=== PATIENT | female | born 1995 | race Caucasian/White ===

== ENCOUNTER 2018-02-06 12:11 | Emergency (ER) | payer BC, OTHER ==
[2018-02-06 12:28] VITALS: BP 137/93
[2018-02-06] MEDS ORDERED: Sodium Chloride 0.9% 1,000 ML IV ONE (13:01)
[2018-02-06] MEDS ORDERED: Sodium Chloride 0.9% 10 ML Syringe FLUSH PRN (13:02)
[2018-02-06] MEDS ORDERED: LORazepam 2 MG/ML SDV IVPUSH ONE (13:03)
--- NOTE | 2018-02-06 13:09 | EDM.PDOC ---
ED HPI GENERAL MEDICAL PROBLEM - General Chief Complaint: Allergic Reaction Stated Complaint: SOB Time Seen by Provider: 02/06/18 12:45 Source of Information: Reports: Patient History Limitations: Reports: No Limitations - History of Present Illness INITIAL COMMENTS - FREE TEXT/NARRATIVE: 22-year-old female presents for evaluation and treatment of shortness of breath. Patient reports that she started on Zoloft yesterday. She started on 50 mg daily. She took a dose yesterday and then again around 6:30 this morning. She states that she felt like she had 2 panic attacks earlier. She states that she went to [facility] and began to feel short of breath. States that she feels that she cannot take a deep breath in. In addition she feels lightheaded and fatigued. She denies any syncope, nausea, vomiting or chest pain. Additionally, she reports numbness and tingling to the left side of her face, left upper extremity, bilateral legs and across her abdomen. She reports concerning Zoloft she has not had much been obtained and have not had much to eat today. She questions if she is dehydrated. Reports that her urine was darker than normal but denies any dysuria. She questions if she is , however, she take 2 at home urine test both were negative. she is currently on the depo shot. She did appreciate some spotting yesterday and today. Patient reports that she started on Zoloft 50 mg daily yesterday for depression. She's never been on anything for depression previously. Additionally, patient reports that she is has had headaches for the last 2 weeks. She normally takes Tylenol or Motrin, [id number] for these. Reports the headache is currently in the frontal area and radiates behind her ears. Reports associated symptoms of photophobia. 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: Psychiatric History: Reports: Depression - Infectious Disease History Infectious Disease History: Reports: Chicken Pox Social & Family History - Tobacco Use Smoking Status *Q: Never Smoker Years of Tobacco use: 1 Used Tobacco, but Quit: No Second Hand Smoke Exposure: Yes - Alcohol Use Days Per Week of Alcohol Use: 2 Number of Drinks Per Day: 2 Total Drinks Per Week: 4 - Recreational Drug Use Recreational Drug Use: No Recreational Drug Type: Reports: Marijuana/Hashish Recreational Drug Use Frequency: Not Used In Over 1 Month ED ROS ALLERGIC REACTION - Review of Systems Review Of Systems: See Below Constitutional: Reports: Decreased Appetite Respiratory: Reports: Shortness of Breath Cardiovascular: Denies: Chest Pain, Syncope GI/Abdominal: Denies: Nausea, Vomiting : Denies: Dysuria Neurological: Reports: Dizziness, Headache, Numbness, Tingling. Denies: Syncope ED EXAM GENERAL NO PERIP PULSE - Physical Exam Exam: See Below Exam Limited By: No Limitations General Appearance: Alert, WD/WN, No Apparent Distress Ears: Normal External Exam Nose: Normal Inspection Throat/Mouth: Normal Inspection, Normal Lips, Normal Voice, No Airway Compromise Respiratory/Chest: No Respiratory Distress, Lungs Clear, Normal Breath Sounds, Chest Non-Tender Cardiovascular: Normal Peripheral Pulses, Regular Rate, Rhythm, No Murmur Extremities: Normal Inspection Neurological: Alert, Oriented, Normal Cognition Psychiatric: Normal Affect, Normal Mood Skin Exam: Warm, Dry, Normal Color Course - Vital Signs Last Recorded V/S: Last Vital Signs Temp 36.6 C 02/06/18 12:24 Pulse 110 H 02/06/18 12:24 Resp 17 02/06/18 12:24 BP 137/93 H 02/06/18 12:24 Pulse Ox 100 02/06/18 12:24 - Orders/Labs/Meds Labs: Laboratory Tests 02/06/18 02/06/18 02/06/18 Range/Units 13:10 13:10 13:10 WBC 5.93 (3.98-10.04) K/mm3 RBC 4.90 (3.98-5.22) M/mm3 Hgb 14.2 (11.2-15.7) gm/L Hct 40.7 (34.1-44.9) % MCV 83.1 (79.4-94.8) fl MCH 29.0 (25.6-32.2) pg MCHC 34.9 (32.2-35.5) g/dl RDW Std Deviation 38.6 (36.4-46.3) fL Plt Count 256 (182-369) K/mm3 MPV 9.9 (9.4-12.3) fl Neutrophils % (Manual) 64 H (40-60) % Band Neutrophils % 0 (0-10) % Lymphocytes % (Manual) 32 (20-40) % Atypical Lymphs % 0 % Monocytes % (Manual) 4 (2-10) % Eosinophils % (Manual) 0 L (0.7-5.8) % Basophils % (Manual) 0 L (0.1-1.2) Platelet Estimate Adequate Plt Morphology Comment Normal RBC Morph Comment Normal D-Dimer, Quantitative (0.19-0.59) mg/L Sodium 140 (136-145) mEq/L Potassium 3.1 L (3.5-5.1) mEq/L Chloride 104 (98-107) mEq/L Carbon Dioxide 24 (21-32) mEq/L Anion Gap 15.1 H (5-15) BUN 11 (7-18) mg/dL Creatinine 1.1 H (0.55-1.02) mg/dL Est Cr Clr Drug Dosing 86.01 mL/min Estimated GFR (MDRD) > 60 (>60) mL/min BUN/Creatinine Ratio 10.0 L (14-18) Glucose 84 (74-106) mg/dL Calcium 9.6 (8.5-10.1) mg/dL Magnesium (1.8-2.4) mg/dl Total Bilirubin 0.5 (0.2-1.0) mg/dL AST 19 (15-37) U/L ALT 33 (14-59) U/L Alkaline Phosphatase 70 (46-116) U/L Total Protein 8.0 (6.4-8.2) g/dl Albumin 4.2 (3.4-5.0) g/dl Globulin 3.8 gm/dL Albumin/Globulin Ratio 1.1 (1-2) TSH 3rd Generation 1.602 (0.358-3.74) uIU/mL HCG, Qual Negative (NEGATIVE) 02/06/18 02/06/18 Range/Units 13:10 13:10 WBC (3.98-10.04) K/mm3 RBC (3.98-5.22) M/mm3 Hgb (11.2-15.7) gm/L Hct (34.1-44.9) % MCV (79.4-94.8) fl MCH (25.6-32.2) pg MCHC (32.2-35.5) g/dl RDW Std Deviation (36.4-46.3) fL Plt Count (182-369) K/mm3 MPV (9.4-12.3) fl Neutrophils % (Manual) (40-60) % Band Neutrophils % (0-10) % Lymphocytes % (Manual) (20-40) % Atypical Lymphs % % Monocytes % (Manual) (2-10) % Eosinophils % (Manual) (0.7-5.8) % Basophils % (Manual) (0.1-1.2) Platelet Estimate Plt Morphology Comment RBC Morph Comment D-Dimer, Quantitative < 0.19 L (0.19-0.59) mg/L Sodium (136-145) mEq/L Potassium (3.5-5.1) mEq/L Chloride (98-107) mEq/L Carbon Dioxide (21-32) mEq/L Anion Gap (5-15) BUN (7-18) mg/dL Creatinine (0.55-1.02) mg/dL Est Cr Clr Drug Dosing mL/min Estimated GFR (MDRD) (>60) mL/min BUN/Creatinine Ratio (14-18) Glucose (74-106) mg/dL Calcium (8.5-10.1) mg/dL Magnesium 2.1 (1.8-2.4) mg/dl Total Bilirubin (0.2-1.0) mg/dL AST (15-37) U/L ALT (14-59) U/L Alkaline Phosphatase (46-116) U/L Total Protein (6.4-8.2) g/dl Albumin (3.4-5.0) g/dl Globulin gm/dL Albumin/Globulin Ratio (1-2) TSH 3rd Generation (0.358-3.74) uIU/mL HCG, Qual (NEGATIVE) Meds: Medications Discontinued Medications Generic Name Dose Route Start Last Admin Trade Name Freq PRN Reason Stop Dose Admin Diphenhydramine HCl 50 mg 02/06/18 13:57 02/06/18 14:00 Benadryl IVPUSH 02/06/18 13:58 50 mg ONETIME ONE Administration Sodium Chloride 1,000 mls @ 999 mls/hr 02/06/18 13:01 02/06/18 13:24 Normal Saline IV 02/06/18 14:01 999 mls/hr ONETIME ONE Administration Ketorolac Tromethamine 30 mg 02/06/18 14:25 02/06/18 14:45 Toradol IVPUSH 02/06/18 14:26 30 mg ONETIME ONE Administration Lorazepam 1 mg 02/06/18 13:03 02/06/18 13:25 Ativan IVPUSH 02/06/18 13:04 1 mg ONETIME ONE Administration Potassium Chloride 20 meq 02/06/18 15:52 02/06/18 15:55 Klor-Con M20 PO 02/06/18 15:53 20 meq ONETIME ONE Administration Sodium Chloride 10 ml 02/06/18 13:02 02/06/18 13:28 Saline Flush FLUSH 10 ml ASDIRECTED PRN Administration Keep Vein Open - Re-Assessments/Exams Free Text/Narrative Re-Assessment/Exam: 02/06/18 15:24 I reviewed the labs with the patient. If she does feel improved after some fluids, Ativan and Benadryl. benadryl was ordered as she reported feeling swelling in her neck. At this time she looks much more relaxed and calm. Working diagnosis is anxiety and panic attacks versus atypical migraines versus reaction to the Zoloft. Zoloft is known to cause some of the symptoms she was experiencing. She also likely has some underlying anxiety. I will encouraged her to stop the Zoloft, as she is on the smallest dose and will try her on some Ativan. She is instructed to follow-up with Dr. Phillips. She agrees this treatment plan. She is instructed to return to the ER for symptoms change or worsen. Departure - Departure Time of Disposition: 15:28 Disposition: Home, Self-Care 01 Condition: Fair Clinical Impression: Anxiety, Adverse reaction to drug - Discharge Information Prescriptions: LORazepam [Ativan] 0.5 mg PO Q8H PRN #10 tab PRN Reason: Anxiety Instructions: Panic Attacks, [id number], Drug Allergy, [id number] Referrals: Maria Alejandra Perez MD [Primary Care Provider] - Forms: ED Department Discharge Additional Instructions: Stop the Zoloft. Take the Ativan 1 tab up to 3 times a day as needed for anxiety and panic-like symptoms. make Sure you're drinking plenty of fluids. Rest. Follow-up with Dr. Phillips for a recheck of your symptoms next week. Please return to the ER if your symptoms change or worsen.
[2018-02-06] MEDS ORDERED: diphenhydrAMINE 50 MG/ML SDV IVPUSH ONE (13:57)
[2018-02-06] MEDS ORDERED: Ketorolac 30 MG/ML SDV IVPUSH ONE (14:25)
[2018-02-06] MEDS ORDERED: Potassium Chloride 20 MEQ Tab.ER PO ONE (15:52)
== END 2018-02-06 15:40 | disposition home or self-care (01) ==
LOC: JD.ED 12:11
DX: F41.9 Anxiety disorder, unspecified (principal); T43.225A Adverse effect of selective serotonin reuptake inhibitors, initial encounter; F32.9 Major depressive disorder, single episode, unspecified; Z88.2 Allergy status to sulfonamides; Z79.899 Other long term (current) drug therapy
CPT/HCPCS: 36415; 80053; 83735; 84443; 84703; 85025; 85379; 96361; 96374; 96375; 99285; A9270; J1200; J1885; J2060; J7040; J7050

== ENCOUNTER 2018-05-01 14:38 | Emergency (ER) | payer BC ==
--- NOTE | 2018-05-01 15:34 | EDM.PDOC ---
ED HPI GENERAL MEDICAL PROBLEM - General Chief Complaint: Respiratory Problem Stated Complaint: RESPIRATORY ISSUES Time Seen by Provider: 05/01/18 15:18 Source of Information: Reports: Patient History Limitations: Reports: No Limitations - History of Present Illness INITIAL COMMENTS - FREE TEXT/NARRATIVE: 22 y/o F previously healthy presents with cough/SOB. States symptoms started about a week ago. She saw a provider at [facility] clinic who did a chest x =ray and blood work. She was told everything was normal and prescribed an albuterol inhaler. She started feeling worse this week. Has copious nasal congestion and a non-productive cough. Subjective fever/chills, no documented fever. Feels constantly short of breath. Used albuterol x 3 today with no relief. She took dayquil this morning. Has a lot of nasal congestion. No lower extremity pain/swelling. No recent travel/immobilization. no personal or family hx of PE. Not on hormonal contraception. 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 Denies: Wheezing, Pleuritic Chest Pain Cardiovascular: Denies: Chest Pain, Edema Endocrine: Reports: No Symptoms GI/Abdominal: Denies: Abdominal Pain : Reports: No Symptoms Musculoskeletal: Reports: No Symptoms. Denies: Leg Pain Skin: Reports: No Symptoms Neurological: Reports: No Symptoms ED EXAM, GENERAL - Physical Exam Exam: See Below Exam Limited By: No Limitations General Appearance: Alert, WD/WN, No Apparent Distress Eye Exam: Bilateral Eye: Normal Inspection Ears: Normal External Exam Nose: Normal Inspection Throat/Mouth: Normal Inspection, Normal Oropharynx, Normal Voice, No Airway Compromise Head: Atraumatic, Normocephalic Neck: Normal Inspection, Supple, Non-Tender, Full Range of Motion Respiratory/Chest: No Respiratory Distress, Lungs Clear, Normal Breath Sounds, Chest Non-Tender Cardiovascular: Normal Peripheral Pulses, Regular Rate, Rhythm, No Edema, No Murmur, Tachycardia Peripheral Pulses: 2+: Radial (R) GI/Abdominal: Soft, Non-Tender, No Distention. No: Rebound Back Exam: No: CVA Tenderness (L), CVA Tenderness (R) Extremities: Normal Inspection, No Pedal Edema. No: Leg Pain Neurological: Alert, Oriented, Normal Cognition, No Motor/Sensory Deficits Psychiatric: Normal Affect, Normal Mood Skin Exam: Warm, Dry, Intact, Normal Color, No Rash Course - Vital Signs Last Recorded V/S: Last Vital Signs Temp 37.2 C 05/01/18 14:49 Pulse 103 H 05/01/18 14:49 Resp 14 05/01/18 16:30 BP 110/84 05/01/18 16:30 Pulse Ox 100 05/01/18 16:30 - Orders/Labs/Meds Orders: Active Orders 24 hr Category Date Time Status EKG 12 Lead [EKG Documentation Completion] [RC] STAT Care 05/01/18 16:07 Active Chest 2V [CR] Stat Exams 05/01/18 15:33 Taken - Re-Assessments/Exams Free Text/Narrative Re-Assessment/Exam: 05/01/18 16:18 CXR shows normal cardiac silhouette, no ptx, no infiltrate, normal CXR. EKG shows NSR, rate 84 bpm, normal intervals, no ST/T abnormality. She has clear symptoms of viral URI. SpO2 100 on RA, no distress, normal cxr/ekg. No PE risk factors. Reassured patient and encouraged her to f/u with PCP if she's not feeling better by next week. Discussed return precautions. Departure - Departure Time of Disposition: 16:19 Disposition: Home, Self-Care 01 Clinical Impression: Viral upper respiratory illness - Discharge Information Instructions: Upper Respiratory Infection, Adult, [id number] Referrals: Maria Alejandra Perez MD [Primary Care Provider] - Forms: ED Department Discharge Additional Instructions: 1. Take over the counter cough and cold medication as needed 2. Follow up with your primary care provider next week if you're not feeling back to normal 3. Return to the ED if you have difficulty breathing, severe chest pain, or other concerning symptoms - My Orders Last 24 Hours: My Active Orders 05/01/18 15:33 Chest 2V [CR] Stat 05/01/18 16:07 EKG 12 Lead [EKG Documentation Completion] [RC] STAT - Assessment/Plan Last 24 Hours: My Active Orders 05/01/18 15:33 Chest 2V [CR] Stat 05/01/18 16:07 EKG 12 Lead [EKG Documentation Completion] [RC] STAT
[2018-05-01 16:35] VITALS: BP 110/84
--- NOTE | 2018-05-02 07:44 | CR ---
Chest: Two views of the chest were obtained. Comparison: No previous chest x-ray. Heart size and mediastinum are normal. Lungs are clear. Bony structures are unremarkable. Impression: 1. Nothing acute is seen on two-view chest x-ray. Diagnostic code #1
== END 2018-05-01 16:30 | disposition home or self-care (01) ==
LOC: JD.ED 14:38
DX: J06.9 Acute upper respiratory infection, unspecified (principal); Z88.2 Allergy status to sulfonamides; Z88.8 Allergy status to other drugs, medicaments and biological substances
CPT/HCPCS: 71046; 71046-26; 93005; 93010; 99283-25; 99285-25

== ENCOUNTER 2018-06-07 15:46 | Emergency (ER) | payer OTHER, BC ==
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
--- NOTE | 2018-06-07 16:53 | CT ---
Head CT Technique: Multiple axial sections brain were obtained. Intravenous contrast was not utilized. Comparison: No previous study. Findings: Ventricles along with basal cisterns and sulci over the convexities appear within normal limits for the patient's age. No abnormal parenchymal densities are seen. No evidence of intracranial hemorrhage. No midline shift or mass effect is seen. Bone window settings were reviewed which shows no acute calvarial abnormality. Retention cyst is noted within the right maxillary sinus measuring 1.9 cm. Mild mucosal thickening is also seen within the right maxillary sinus. Other visualized sinuses are clear. Impression: 1. Chronic sinus findings within the right maxillary sinus as noted above. 2. No acute intracranial abnormality is seen. No acute calvarial abnormality is seen. Diagnostic code #2
--- NOTE | 2018-06-07 16:55 | CT ---
CT cervical spine Technique: Multiple axial sections were obtained from above C1 inferiorly to the mid T2 level. Reconstructed sagittal and coronal images were reviewed. Comparison: No prior cervical spine imaging. Findings: Vertebral body heights and disc spaces are maintained. Vertebral bodies and posterior arches are intact. No fracture is seen. No abnormal subluxation is seen on the reconstructed sagittal images. No bony central or bony neural foraminal stenosis is seen. Sinus findings within the right maxillary sinus as described on head CT exam. Impression: 1. Nothing acute is seen on CT study of the cervical spine. Diagnostic code #1
[2018-06-07 17:42] VITALS: BP 108/78
--- NOTE | 2018-06-08 09:59 | CR ---
Thoracic spine: AP, lateral and swimmer's views of the thoracic spine were obtained. Vertebral body heights and disc spaces are maintained. Pedicles are intact. Minimal upper thoracic scoliosis is noted. No subluxation or fracture is seen. No paravertebral soft tissue swelling is seen. Impression: 1. Minimal upper thoracic scoliosis. 2. Three-view thoracic spine study is otherwise unremarkable. Nothing acute is seen. Diagnostic code #2
== END 2018-06-07 17:38 | disposition home or self-care (01) ==
LOC: JD.ED 15:46
DX: S06.0X9A Concussion with loss of consciousness of unspecified duration, initial encounter (principal); S29.019A Strain of muscle and tendon of unspecified wall of thorax, initial encounter; Z88.2 Allergy status to sulfonamides; Z88.8 Allergy status to other drugs, medicaments and biological substances; V49.9XXA Car occupant (driver) (passenger) injured in unspecified traffic accident, initial encounter; Y92.481 Parking lot as the place of occurrence of the external cause
CPT/HCPCS: 70450; 70450-26; 72070; 72070-26; 72125; 72125-26; 99284-25

== ENCOUNTER 2018-08-19 02:49 | Emergency (ER) | payer BC ==
[2018-08-19 03:00] VITALS: BP 122/76
[2018-08-19] MEDS ORDERED: Sodium Chloride 0.9% 10 ML Syringe FLUSH PRN (03:17)
[2018-08-19] MEDS ORDERED: LORazepam 2 MG/ML SDV IVPUSH ONE (03:17)
--- NOTE | 2018-08-19 03:19 | EDM.PDOCBH ---
ED HPI GENERAL MEDICAL PROBLEM - General Chief Complaint: Behavioral/Psych Stated Complaint: PANIC ATTACK Time Seen by Provider: 08/19/18 03:17 Source of Information: Reports: Patient History Limitations: Reports: No Limitations - History of Present Illness INITIAL COMMENTS - FREE TEXT/NARRATIVE: 21-year-old female presents the ED with acute onset of generalized anxiety with strong depressive thoughts the last few days. She admits that she's been having increased anxiety over the last week. She states that she was on antidepressants but was doing quite well and discontinued them about a month ago. She has had a recurrence of depressive behaviors and thought processes over the last week with increased anxiety. She reintroduced her antidepressants 2 days ago. Be the cause of increased anxieties night. She awoke around midnight with acute anxiety reaction with hyperventilation syndrome and diffuse numbness and tingling periorally hands and feet and could barely walk. Associated palpitations and difficulty getting a deep breath. Patient states she 's had panic attacks in the past and has been having them off and on all week but has usually been able to gain control. Tonight it's been 3 hours and she still has not been able to settle down. Admits to feeling very anxious. Onset: Today Onset Date: 08/19/18 Onset Time: 00:00 Duration: Hour(s): Location: Reports: Generalized (Generalized numbness and tingling in all of her extremities. Can barely walk. She can sparingly feel her feet. Associated rapid heartbeat and respirations. Feeling of dizziness and generalized weakness.) Quality: Reports: Other (Severe hyperventilation syndrome/panic attack) Severity: Severe Improves with: Reports: None Worsens with: Reports: None Context: Reports: Other (Possible aggravation of anxiety symptoms since starting her venlafaxine 37.5 mg once daily after being off of it for a month.) . Denies: Activity, Exercise, Lifting, Sick Contact, Trauma Associated Symptoms: Reports: Confusion, Loss of Appetite, Malaise, Shortness of Breath, Weakness. Denies: Diaphoresis, Fever/Chills, Headaches, Nausea/ Vomiting, Rash, Seizure Treatments ICT SALES ASSISTANT: Reports: Other (see below) (Generalized weakness numbness and tingling in the lower extremities. None.) Generalized Pain Score (Numeric/FACES): 5 - Related Data Allergies Allergy/AdvReac Type Severity Reaction Status Date / Time sertraline [From Zoloft] Allergy Airway Verified 08/19/18 03:00 Tightness Sulfa (Sulfonamide Allergy Cannot Verified 08/19/18 03:00 Antibiotics) Remember Home Meds: Home Meds Albuterol [Ventolin HFA] 2 puff INH Q4H PRN 05/01/18 [History] LORazepam [Ativan] 1 mg PO Q8H PRN #10 tablet 08/19/18 [Rx] Past Medical History - Past Health History Medical/Surgical History: Denies Medical/Surgical History HEENT History: Reports: Impaired Vision Respiratory History: Reports: Asthma 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: Psychiatric History: Reports: Anxiety, Depression - Infectious Disease History Infectious Disease History: Reports: Chicken Pox Social & Family History - Family History Family Medical History: Noncontributory - Tobacco Use Smoking Status *Q: Former Smoker Used Tobacco, but Quit: Yes Month/Year Tobacco Last Used: 5 years - Caffeine Use Caffeine Use: Reports: Energy Drinks, Soda - Recreational Drug Use Recreational Drug Use: No - Living Situation & Occupation Living situation: Reports: Single Occupation: Employed ED ROS GENERAL - Review of Systems Review Of Systems: See Below Constitutional: Reports: Weakness. Denies: Fever, Chills HEENT: Reports: Glasses Respiratory: Reports: Shortness of Breath. Denies: Wheezing, Pleuritic Chest Pain, Cough, Sputum Cardiovascular: Reports: Chest Pain, Palpitations. Denies: Blood Pressure Problem, Claudication, Dyspnea on Exertion, Edema, Lightheadedness, Orthopnea Endocrine: Reports: Fatigue GI/Abdominal: Reports: No Symptoms : Reports: No Symptoms Musculoskeletal: Reports: No Symptoms Skin: Reports: No Symptoms Neurological: Reports: Confusion, Dizziness, Numbness (In all of the extremities particularly the upper extremities and periorally.), Tingling ( Generalized weakness), Difficulty Walking, Weakness Psychiatric: Reports: Anxiety, Depression (Increased depression symptoms over the last few days. She thus started herself back on her venlafaxine 37.5 mg once daily after being off of it for the last month.) Hematologic/Lymphatic: Reports: No Symptoms Immunologic: Reports: No Symptoms ED EXAM, BEHAVIORAL HEALTH - Physical Exam Exam: See Below Exam Limited By: No Limitations General Appearance: Alert, Anxious (Moderate to severe distress), Moderate Distress, Other (Severe hyperventilation syndrome but still able to speak throat and answer questions appropriately.) Eye Exam: Bilateral Eye: Conjunctival Injection (From crying.) Throat/Mouth: Normal Inspection, Normal Lips, Normal Teeth, Normal Oropharynx Head: Atraumatic, Normocephalic Neck: Normal Inspection, Supple, Non-Tender, Full Range of Motion. No: Lymphadenopathy (L), Lymphadenopathy (R) Respiratory/Chest: Lungs Clear, Normal Breath Sounds, Respiratory Distress ( Tachypnea 28/m.) Cardiovascular: Normal Peripheral Pulses, No Edema, No Gallop, No Murmur, No Rub , Tachycardia (Tachycardia of 1 36/m.) GI/Abdominal: Normal Bowel Sounds, Soft, Non-Tender, No Organomegaly, No Mass, Pelvis Stable, Distended (Mildly distended in the upper abdomen with tip 8 percussion suggesting some degree of aerophagia.), Rebound Back Exam: Normal Inspection, Full Range of Motion. No: CVA Tenderness (L), CVA Tenderness (R) Extremities: Normal Inspection, Normal Range of Motion, Non-Tender, No Pedal Edema Neurological: Alert, Normal Mood/Affect, CN II-XII Intact, Normal Cognition, Oriented x 3, Abnormal Sensation, Abnormal Pin Prick (Hands and wrists.). No: Disoriented to Person, Disoriented to Place, Disoriented to Time, Inattentive, Memory Loss Remote Events, Memory Loss Recent Events, Abnormal Reflexes, Ataxia , Tongue Deviation (L), Tongue Deviation (R), No Response to Commands, Opens Eyes to Commands, Abnormal Finger to Nose, Abnormal Heel to Berger, Abnormal Light Touch, Abnormal Motor Psychiatric: Alert, Tearful, Other (Acute anxiety/panic attack) Skin Exam: Warm (.), Dry, Intact, Normal color, No rash COURSE, BEHAVIORAL HEALTH COMP - Course Vital Signs: Last Vital Signs Temp 36.9 C 08/19/18 02:56 Pulse 127 H 08/19/18 02:56 Resp 24 H 08/19/18 02:56 BP 122/76 08/19/18 02:56 Pulse Ox 100 08/19/18 02:56 Orders, Labs, Meds: Active Orders 24 hr Category Date Time Status Peripheral IV Care [RC] . DIRECTED Care 08/19/18 03:17 Active Sodium Chloride 0.9% [Saline Flush] Med 08/19/18 03:17 Active 10 ml FLUSH ASDIRECTED PRN Peripheral IV Insertion Adult [OM.PC] Stat Oth 08/19/18 03:17 Ordered Medication Orders Sodium Chloride (Saline Flush) 10 ml FLUSH ASDIRECTED PRN PRN Reason: Keep Vein Open Last Admin: 08/19/18 03:23 Dose: 10 ml Medications Generic Name Dose Route Start Last Admin Trade Name Freq PRN Reason Stop Dose Admin Sodium Chloride 10 ml 08/19/18 03:17 08/19/18 03:23 Saline Flush FLUSH 10 ml ASDIRECTED PRN Administration Keep Vein Open Discontinued Medications Generic Name Dose Route Start Last Admin Trade Name Freq PRN Reason Stop Dose Admin Lorazepam 1 mg 08/19/18 03:17 08/19/18 03:23 Ativan IVPUSH 08/19/18 03:18 1 mg ONETIME ONE Administration Lorazepam 1 mg 08/19/18 03:56 Ativan PO 08/19/18 03:57 ONETIME ONE Re-Assessment/Re-Exam: 22-year-old female presents to the ED with acute onset of hyperventilation syndrome uptake she has generalized numbness continue all of her extremities. Symptoms started at midnight 1 over 3 hours ago and have persisted. She states she has a history of panic disorder in the past. Usually has been well- controlled with antidepressant venlafaxine 37.5 mg daily. Will the last few days she's had increased depressive thought processes with no true suicidal ideation. The depressive thoughts scare her. She thus returned herself to venlafaxine 37.5 mg by mouth once daily yesterday after being off for the last month. Tonight she was unable to gain control of anxiety/panic attack. She's had multiple small anxiety episodes over the last week. This also is one of the reason she started herself back on venlafaxine. Assessment is acute hyperventilation syndrome/panic attack. She will be treated with Ativan 1 mg intravenously. Patient was told that anxiety symptoms which can sometimes worsen in the initial week to 10 days of use of an antidepressant medication. Re-Assessment/Re-Exam Date: 08/19/18 (03:55: Patient is feeling much better. Still feels like her head is in a bit of a fall but heart rate is slow down her respiratory rate is slow down and the numbness and tingling in her extremities markedly improved. She'll therefore be discharged to home. Has a friend that can drive her. Note given to excuse her from the workplace a day as she is post to start half an hour ago. I will give her Ativan 1 mg tablets 10 to be used every 8 hours when necessary for anxiety attack if needed. She will continue to use venlafaxine 37.5 mg once daily as she started yesterday. This is after being off of her for a month.) Departure - Departure Time of Disposition: 03:58 Disposition: Home, Self-Care 01 Condition: Fair Clinical Impression: Panic attack, Depressive disorder - Discharge Information *PRESCRIPTION DRUG MONITORING PROGRAM REVIEWED*: Not Applicable *COPY OF PRESCRIPTION DRUG MONITORING REPORT IN PATIENT MIGUELANGEL: Not Applicable Prescriptions: LORazepam [Ativan] 1 mg PO Q8H PRN #10 tablet PRN Reason: Anxiety attack Referrals: Maria Alejandra Perez MD [Primary Care Provider] - Forms: ED Department Discharge, ED Return to Work/School Form Additional Instructions: Evaluation the emergency room this morning due to severe anxiety attack with symptoms lasting over 3 hours. This includes numbness tingling in extremities and face. A sense of formication which is a feeling of bugs her aunts crawling on the skin. Associated rapid heartbeat and hyperventilation syndrome. Recent increase in anxiety the last week. Off of venlafaxine 37.5 mg once daily for the last month. This is usually when symptoms of anxiety and depression start to recur 3 weeks off of medication. This proves you need to stay on the medication for symptom control. However as we discussed you may have increased anxiety for the first week to 10 days of use of the antidepressant medication and then symptoms will get better. You're treated in the emergency room tonight with intravenous Ativan 1 mg strength to bring anxiety relief. You're also sent home with 1 mg tablet of Ativan to be used if you develop recurrent similar symptoms of the next 6 or 8 hours. I also wrote a prescription for Ativan 1 mg strength to be used every 8 hours as needed for relief of anxiety or panic attack. Continue the venlafaxine 37.5 mg once daily as previously prescribed. Follow-up with personal care provider if any further problems occur or if you continue to have anxiety symptoms after 10 days. - My Orders Last 24 Hours: My Active Orders 08/19/18 03:17 Peripheral IV Care [RC] . DIRECTED Sodium Chloride 0.9% [Saline Flush] 10 ml FLUSH ASDIRECTED PRN Peripheral IV Insertion Adult [OM.PC] Stat - Assessment/Plan Last 24 Hours: My Active Orders 08/19/18 03:17 Peripheral IV Care [RC] . DIRECTED Sodium Chloride 0.9% [Saline Flush] 10 ml FLUSH ASDIRECTED PRN Peripheral IV Insertion Adult [OM.PC] Stat
[2018-08-19] MEDS ORDERED: LORazepam 1 MG Tab PO ONE (03:56)
== END 2018-08-19 04:12 | disposition home or self-care (01) ==
LOC: JD.ED 02:49
DX: F41.0 Panic disorder [episodic paroxysmal anxiety] (principal); F32.9 Major depressive disorder, single episode, unspecified; J45.909 Unspecified asthma, uncomplicated; Z88.2 Allergy status to sulfonamides; Z88.8 Allergy status to other drugs, medicaments and biological substances; Z79.899 Other long term (current) drug therapy; Z87.891 Personal history of nicotine dependence
CPT/HCPCS: 96374; 99283; A9270; J2060; J7050; 99284

== ENCOUNTER 2019-05-17 22:07 | Emergency (ER) | payer BC, MEDICAID ==
[2019-05-17 22:17] VITALS: BP 133/90
--- NOTE | 2019-05-17 22:57 | EDM.PDOC ---
ED HPI GENERAL MEDICAL PROBLEM - General Chief Complaint: ENT Problem Stated Complaint: SORE THROAT Time Seen by Provider: 05/17/19 22:14 Source of Information: Reports: Patient History Limitations: Reports: No Limitations - History of Present Illness INITIAL COMMENTS - FREE TEXT/NARRATIVE: Patient is a 23-year-old female presents ED complaining of sore throat. She states she had similar symptoms approximately 2 weeks ago that resolved on its own accord over the next few days. She was evaluated in the ED and had mono test and also strep screen that both came back negative. She was advised that her tonsils were swollen. Again patient had onset of similar symptoms this past Monday. She's had sinus congestion, runny nose, postnasal drip, and with slight cough to clear her throat. She's had no documented fever, recent sick exposures , shortness of breath, chest pain, nausea or vomiting. She has no ear pain although she notes as a child she had multiple ear tubes placed. Current medications include Abilify, Wellbutrin, albuterol inhaler, mobile, and lorazepam. Throat Pain Score (Numeric/FACES): 7 - Related Data Allergies Allergy/AdvReac Type Severity Reaction Status Date / Time sertraline [From Zoloft] Allergy Airway Verified 05/17/19 22:12 Tightness Sulfa (Sulfonamide Allergy Cannot Verified 05/17/19 22:12 Antibiotics) Remember Home Meds: Home Meds Albuterol [Ventolin HFA] 2 puff INH Q4H PRN 05/01/18 [History] ARIPiprazole [Abilify] 5 mg PO DAILY 05/17/19 [History] Albuterol Inhaler 05/17/19 [History] LORazepam [Ativan] 0.5 mg PO Q8H PRN 05/17/19 [History] Meloxicam [Mobic] 15 mg PO DAILY PRN 05/17/19 [History] buPROPion HCl [Wellbutrin Xl] 150 mg PO DAILY 05/17/19 [History] Past Medical History - Past Health History Medical/Surgical History: Denies Medical/Surgical History HEENT History: Reports: Impaired Vision Respiratory History: Reports: Asthma 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 ED EXAM, ENT - Physical Exam Exam: See Below Exam Limited By: No Limitations General Appearance: Alert, WD/WN, No Apparent Distress Eye Exam: Bilateral Eye: Normal Inspection, PERRL Ears: Normal External Exam, Normal Canal, Hearing Grossly Normal. No: Normal TMs, TM Bulging, TM Dullness, TM Erythema, TM Blood, TM Fluid, TM Perforation, TM Vesicles, TM Obscured by Cerumen Nose: Normal Inspection, No Blood, Clear Rhinorrhea, Nasal Swelling. No: Nasal Discharge Mouth/Throat: Normal Inspection, Normal Teeth. No: Drooling, Dry Mucous Membrane, Oral Ulcers, Peritonsillar Mass, Pharyngeal Erythema, Tongue Swelling , Tonsillar Erythema, Tonsillar Exudates, Tonsillar Swelling, Trismus, Uvular Deviation Head: Atraumatic, Normocephalic Neck: Normal Inspection, Supple, Non-Tender, Full Range of Motion. No: Lymphadenopathy (L) Respiratory/Chest: No Respiratory Distress, Lungs Clear, Normal Breath Sounds, No Accessory Muscle Use, Chest Non-Tender Cardiovascular: Normal Peripheral Pulses, Regular Rate, Rhythm, No Murmur Extremities: Normal Inspection Neurological: Alert, Oriented, CN II-XII Intact, Normal Cognition, No Motor/ Sensory Deficits Psychiatric: Normal Affect, Normal Mood Skin: Warm, Dry, Intact, Normal Color Course - Vital Signs Last Recorded V/S: Last Vital Signs Temp 98.9 F 05/17/19 22:14 Pulse 82 05/17/19 22:14 Resp BP 133/90 05/17/19 22:14 Pulse Ox 98 05/17/19 22:14 - Re-Assessments/Exams Free Text/Narrative Re-Assessment/Exam: On exam patient has a postnasal drip with no findings concerning for strep throat, tonsillitis, or any other concerning findings. Patient has a viral upper respiratory infection that is not require any additional testing or treatment with antibiotics. Return precautions discussed with the patient. She had no further questions or concerns and agreed with plan. Departure - Departure Time of Disposition: 22:59 Disposition: Home, Self-Care 01 Condition: Good Clinical Impression: Viral upper respiratory tract infection - Discharge Information Instructions: Viral Respiratory Infection Referrals: Maria Alejandra Perez MD [Primary Care Provider] - Forms: ED Department Discharge, ED Return to Work/School Form Additional Instructions: Suggest using Claritin 10 mg every day, Flonase 2 sprays to each nare every day , nasal saline spray 1 spray to each Nare as needed throughout the course of the day as needed. May utilize OTC sudafed per manufactures instructions. Symptoms may persist for 10 to 14 days. See PCP if symptoms persist. Return to the E.D. if patient develops any new or worsening symptoms. Antibiotics are not required since this is viral in etiology.
== END 2019-05-17 23:16 | disposition home or self-care (01) ==
LOC: JD.ED 22:07
DX: J06.9 Acute upper respiratory infection, unspecified (principal); F41.9 Anxiety disorder, unspecified; F32.9 Major depressive disorder, single episode, unspecified; J45.909 Unspecified asthma, uncomplicated; Z79.899 Other long term (current) drug therapy; Z88.2 Allergy status to sulfonamides
CPT/HCPCS: 99282

== ENCOUNTER 2019-07-31 17:49 | Emergency (ER) | payer SELFPAY ==
[2019-07-31 18:04] VITALS: BP 116/83; PULSE 121
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
== END 2019-07-31 19:27 | disposition home or self-care (01) ==
LOC: JD.ED 17:49
DX: N92.0 Excessive and frequent menstruation with regular cycle (principal); J45.909 Unspecified asthma, uncomplicated; F41.9 Anxiety disorder, unspecified; F32.9 Major depressive disorder, single episode, unspecified; Z88.2 Allergy status to sulfonamides; Z88.8 Allergy status to other drugs, medicaments and biological substances; Z79.51 Long term (current) use of inhaled steroids
CPT/HCPCS: 36415; 81001; 81025; 85025; 99282; 99284

== ENCOUNTER 2019-11-18 23:26 | Emergency (ER) | payer OTHER ==
[2019-11-18 23:42] VITALS: BP 137/89; PULSE 89
--- NOTE | 2019-11-19 00:32 | EDM.PDOC ---
ED HPI GENERAL MEDICAL PROBLEM - General Chief Complaint: Lower Extremity Injury/Pain Stated Complaint: LEFT FOOT DROPPED GLASS DOOR ON TOES Time Seen by Provider: 11/18/19 23:43 Source of Information: Reports: Patient History Limitations: Reports: No Limitations - History of Present Illness INITIAL COMMENTS - FREE TEXT/NARRATIVE: TRIAGE NOTE -- pt presents with left foot pain. pt states a glass door from a cooler fell on her toes. pain is in her 1st 3 toes and radiates to her heel. [ End ] As above. Incident happened about 3 hours prior to arrival. Patient dressed the wound herself is the only intervention prior to arrival. No identified risk factors. Pain is especially in the great toe where the nail is dislodged. There had been some slight bleeding around the proximal nail fold. Left Feet Pain Score (Numeric/FACES): 8 - Related Data Allergies Allergy/AdvReac Type Severity Reaction Status Date / Time sertraline [From Zoloft] Allergy Airway Verified 11/18/19 23:42 Tightness Sulfa (Sulfonamide Allergy Cannot Verified 11/18/19 23:42 Antibiotics) Remember Home Meds: Home Meds Doxycycline Hyclate 150 mg PO BID #20 tablet. 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 ED EXAM, GENERAL - Physical Exam Exam: See Below Exam Limited By: No Limitations General Appearance: Alert, WD/WN Eye Exam: Bilateral Eye: EOMI, PERRL Ears: Normal External Exam Nose: Normal Inspection Throat/Mouth: Normal Inspection Head: Atraumatic, Normocephalic Neck: Normal Inspection, Supple Respiratory/Chest: No Respiratory Distress, Lungs Clear Cardiovascular: Regular Rate, Rhythm GI/Abdominal: Soft, Non-Tender Back Exam: Normal Inspection Extremities: Other (Left foot there is mild swelling of the medial 3 toes. Nail of the great toe is dislodged with some slight discoloration suggestive of subungual hematoma proximally. There is a slight amount of dried blood around the nail fold. No deformity or instability. There is no laceration site identified.) Psychiatric: Normal Affect, Normal Mood Skin Exam: Warm, Dry Course - Vital Signs Last Recorded V/S: Last Vital Signs Temp 36.3 C 11/18/19 23:37 Pulse 89 11/18/19 23:37 Resp 16 11/18/19 23:37 BP 137/89 11/18/19 23:37 Pulse Ox 100 11/18/19 23:37 - Orders/Labs/Meds Orders: Active Orders 24 hr Category Date Time Status Foot 2V Lt [CR] Stat Exams 11/19/19 00:06 Taken DME for Discharge [COMM] Stat Oth 11/19/19 00:33 Ordered Labs: Laboratory Tests 11/19/19 Range/Units 00:50 Urine HCG, Qual Negative (NEGATIVE) - Re-Assessments/Exams Free Text/Narrative Re-Assessment/Exam: 11/19/19 01:02 No fracture is identified. Left foot x-ray study. However there is a risk of infection and patient needs to be on an antibiotic. test is negative. We need to cover for MRSA. Bactrim should be effective but she is allergic to sulfa. Tetracycline will be prescribed. test is negative. Walking boot and crutches. Keep elevated. See primary for follow-up. 11/19/19 01:07 Departure - Departure Time of Disposition: 01:04 Disposition: Home, Self-Care 01 Condition: Good Clinical Impression: Crushing injury of toe of left foot Qualifiers: Encounter type: initial encounter Qualified Code(s): S97.102A - Crushing injury of unspecified left toe(s), initial encounter - Discharge Information Prescriptions: Doxycycline Hyclate 150 mg PO BID #20 tablet. Referrals: Maria Alejandra Perez MD [Primary Care Provider] - Forms: ED Department Discharge Additional Instructions: You have a crush injury of the left foot involving the great toe primarily. As there is some skin injury and also risk of passive congestion causing predisposition to infection you are being covered by an antibiotic doxycycline which will cover for MRSA. Maintain the nail in place. I will protect the nailbed while it is healing and keep it in place as long as you can reasonably do so. Keep the foot elevated for the next 12 to 24 hours. For any increased pain swelling fever discharge return to ER immediately. Arrange follow-up with your primary. Use crutches. Weightbearing as tolerated on the foot but it should be elevated for the most part for a day or so at least. Do not put a shoe on. Use the walking boot provided. Sepsis Event Note - Evaluation Sepsis Screening Result: No Definite Risk - Focused Exam Vital Signs: Vital Signs Temp Pulse Resp BP Pulse Ox 11/18/19 23:37 36.3 C 89 16 137/89 100 Date Exam was Performed: 11/19/19 Time Exam was Performed: 01:02 - My Orders Last 24 Hours: My Active Orders 11/19/19 00:06 Foot 2V Lt [CR] Stat 11/19/19 00:33 DME for Discharge [COMM] Stat - Assessment/Plan Last 24 Hours: My Active Orders 11/19/19 00:06 Foot 2V Lt [CR] Stat 11/19/19 00:33 DME for Discharge [COMM] Stat
--- NOTE | 2019-11-19 09:22 | CR ---
Left foot: Two views of the left foot were obtained. Comparison: No previous foot exam. Joint spaces are preserved. No fracture or other bony abnormality is identified. Impression: 1. No abnormality is appreciated on two-view left foot exam. Diagnostic code #1 This report was dictated in Mountain Standard Time
== END 2019-11-19 01:32 | disposition home or self-care (01) ==
LOC: JD.ED 23:26
DX: S97.112A Crushing injury of left great toe, initial encounter (principal); S97.122A Crushing injury of left lesser toe(s), initial encounter; Z88.8 Allergy status to other drugs, medicaments and biological substances; Z88.2 Allergy status to sulfonamides; W20.8XXA Other cause of strike by thrown, projected or falling object, initial encounter
CPT/HCPCS: 73620-26-LT; 73620-LT; 81025; 99283; 99283-25

== ENCOUNTER 2019-12-05 10:39 | Emergency (ER) | payer OTHER ==
[2019-12-05 10:52] VITALS: BP 125/77; PULSE 100
[2019-12-05] MEDS ORDERED: Sodium Chloride 0.9% 10 ML Syringe FLUSH PRN (11:01)
[2019-12-05] MEDS ORDERED: LORazepam 2 MG/ML SDV IVPUSH ONE (11:01)
[2019-12-05] MEDS ORDERED: Sodium Chloride 0.9% 1,000 ML IV SCH (11:15)
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
== END 2019-12-05 12:56 | disposition home or self-care (01) ==
LOC: JD.ED 10:39
DX: R55 Syncope and collapse (principal); F41.0 Panic disorder [episodic paroxysmal anxiety]; Z88.2 Allergy status to sulfonamides; Z88.8 Allergy status to other drugs, medicaments and biological substances
CPT/HCPCS: 96361; 96374; 99284; J2060; J7030; 99283

== ENCOUNTER 2021-11-07 03:22 | Emergency (ER) | payer MEDICAID, OTHER ==
[2021-11-07] MEDS ORDERED: Acetaminophen/HYDROcodone 325-5 MG Tab PO ONE (03:28)
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
[2021-11-07 05:39] VITALS: BP 113/76; PULSE 99
--- NOTE | 2021-11-07 09:03 | CR ---
Chest: Portable view of the chest was obtained. Comparison: Prior chest x-ray of 05/01/18. Heart size and mediastinum are within normal limits. Mildly displaced fracture is seen within the left clavicle. No additional bony abnormality is appreciated. Lungs are clear with no acute parenchymal change. No discrete pneumothorax is seen. Impression: 1. Mildly displaced clavicle fracture on the left side. 2. Nothing acute is otherwise seen on portable chest x-ray. Diagnostic code #3
--- NOTE | 2021-11-07 09:08 | CR ---
Left clavicle: 2 views of the left clavicle were obtained. Comparison: No prior clavicle study, prior chest x-ray performed earlier on the same day. Slightly comminuted fracture is seen within the shaft of the left clavicle. There is displacement of the main fragments by over a shaft width. Acromioclavicular alignment is normal. No additional abnormality is seen. Impression: 1. Mildly comminuted and displaced clavicular shaft fracture. Diagnostic code #3
== END 2021-11-07 05:38 | disposition home or self-care (01) ==
LOC: JD.ED 03:22
DX: S42.022A Displaced fracture of shaft of left clavicle, initial encounter for closed fracture (principal); Z88.8 Allergy status to other drugs, medicaments and biological substances; Z88.2 Allergy status to sulfonamides; Z79.899 Other long term (current) drug therapy; Z72.0 Tobacco use; V58.5XXA Driver of pick-up truck or van injured in noncollision transport accident in traffic accident, initial encounter
CPT/HCPCS: 71045; 73000; 99284; A9270; 99285